=== PATIENT | female | born 1960 | race Hispanic/Latino ===

== ENCOUNTER → 2018-10-17 | Outpatient (CLI) | payer BC ==
[~2018-10-17] MED LIST: IOHEXOL 350 MG/ML 100ML INFUS..BTL IV ONE
== END | disposition home or self-care (01) ==
LOC: RAH 07:49
PROVIDERS: ATTEND Internal Medicine Gastroenterology
DX: D25.9 Leiomyoma of uterus, unspecified (principal); K57.30 Diverticulosis of large intestine without perforation or abscess without bleeding; M51.35 Other intervertebral disc degeneration, thoracolumbar region; K46.9 Unspecified abdominal hernia without obstruction or gangrene
CPT/HCPCS: 71270; 74178; Q9967

== ENCOUNTER → 2018-12-24 | Outpatient (CLI) | payer BC | END | disposition home or self-care (01) | LOC: OIH 14:09 | PROVIDERS: ATTEND Nurse Practitioner Family | DX: M17.12 Unilateral primary osteoarthritis, left knee (principal); M16.12 Unilateral primary osteoarthritis, left hip | CPT/HCPCS: 73502; 73552; 73562 ==